=== PATIENT | male | born 1980 | race Caucasian/White ===

== ENCOUNTER 2017-06-30 11:32 | Emergency (ER) | payer MEDICAID ==
[2017-06-30 12:09] LABS: BASOPHILS % (AUTO) 0.2 %; EOSINOPHILS # (AUTO) 0.1 10^3/uL (0.0-0.7); EOSINOPHILS % (AUTO) 0.6 %; HCT - HEMATOCRIT 47.9 % (42.0-52.0); HGB - HEMOGLOBIN 16.3 g/dL (14.0-18.0); LYMPHOCYTES # (AUTO) 1.7 10^3/uL (1.5-3.5); LYMPHOCYTES % (AUTO) 18.5 %; MEAN CORPUSCULAR HEMOGLOBIN 30.9 pg (27.0-31.0); MEAN CORPUSCULAR VOLUME 90.9 fL (80.0-94.0); MONOCYTES # (AUTO) 0.5 10^3/uL (0.0-1.0); MONOCYTES % (AUTO) 5.9 %; NEUTROPHILS # (AUTO) 6.9 10^3/uL (1.5-6.6); NEUTROPHILS % (AUTO) 74.8 %; NUCLEATED RED BLOOD CELLS AUTO 0.1 /100WBC; RED BLOOD COUNT 5.27 10^6/uL (4.70-6.10); RED CELL DISTRIBUTION WIDTH 13.1 % (12.0-15.0); UNCORRECTED WHITE BLOOD COUNT 9.2 x10^3/uL; WHITE BLOOD COUNT 9.2 x10^3/uL (4.8-10.8)
[2017-06-30 12:24] LABS: ALBUMIN/GLOBULIN RATIO 1.4 (1.0-2.2); BILIRUBIN,TOTAL 0.8 mg/dL (0.2-1.0); CALCIUM 9.2 mg/dL (8.5-10.3); CREATININE 0.9 mg/dL (0.6-1.2); POTASSIUM 4.1 mmol/L (3.5-5.0); TOTAL PROTEIN 7.8 g/dL (6.7-8.2)
[2017-06-30] MEDS ORDERED: IBUPROFEN 800 MG TABLET PO STA (12:33)
--- NOTE | 2017-06-30 12:35 | ED Physician Documentation ---
PD HPI CHEST PAIN - Stated complaint Stated Complaint: RT SIDE PX - Chief complaint Chief Complaint: Abd Pain - History obtained from History obtained from: Patient - History of Present Illness Timing - onset: Yesterday Timing - onset during: Rest Timing - details: Constant Quality: Sharp Location: Right chest Worsened by: Inspiration, Palpation Associated symptoms: Shortness of air. No: Nausea, Vomiting, Cough Similar symptoms before: Has not had sx before - Additional information Additional information: The patient is a 36-year-old male who presents with right lower chest pain that started yesterday morning, and has gotten progressively worse. The pain is worse with inspiration or with palpation, and gets better when sitting upright. He reports associated shortness of breath. He denies cough or fever. He denies abdominal pain, nausea, or vomiting. He denies history of similar symptoms in the past. He quit smoking cigarettes about 5 years ago. He has had no recent travel, and no recent injury. Review of Systems Constitutional: denies: Fever Nose: denies: Congestion Throat: denies: Sore throat Cardiac: reports: Chest pain / pressure. denies: Palpitations Respiratory: reports: Dyspnea. denies: Cough GI: denies: Abdominal Pain, Nausea, Vomiting : denies: Dysuria Skin: denies: Rash Musculoskeletal: denies: Neck pain, Back pain, Extremity pain, Extremity swelling Neurologic: denies: Focal weakness, Numbness, Headache PD PAST MEDICAL HISTORY - Past Medical History Cardiovascular: None Respiratory: None Neuro: None Endocrine/Autoimmune: None - Present Medications Home Medications: Ambulatory Orders Medication Instructions Recorded Confirmed Gabapentin 300 mg PO TID 06/30/17 06/30/17 Ibuprofen 800 mg PO TID PRN #30 tablet 06/30/17 Ibuprofen [Motrin] 1 tab PO PRN PRN 06/30/17 06/30/17 traMADol [Ultram] 50 mg PO PRN PRN 06/30/17 06/30/17 - Allergies Allergies/Adverse Reactions: Allergies Allergy/AdvReac Type Severity Reaction Status Date / Time hydrocodone AdvReac Nausea Verified 06/30/17 11:48 - Social History Does the pt smoke?: No Smoking Status: Former smoker (Quit five years ago.) PD ED PE NORMAL - Vitals Vital signs reviewed: Yes (normal) - General General: Alert and oriented X 3, Well developed/nourished - HEENT HEENT: Atraumatic, Pharynx benign - Neck Neck: No adenopathy, No JVD - Cardiac Cardiac: RRR, No murmur - Respiratory Respiratory: No respiratory distress, Clear bilaterally, Other (Tenderness to palpation of right lower chest wall in the anterior axillary to midclavicular line.) - Abdomen Abdomen: Soft, Non tender, No organomegaly - Back Back: No CVA TTP - Derm Derm: No rash - Extremities Extremities: No edema, No calf tenderness / cord - Neuro Neuro: Alert and oriented X 3, No motor deficit, No sensory deficit Results - Vitals Vitals: Oxygen O2 Source Room air - Labs Labs: Laboratory Tests 06/30/17 06/30/17 06/30/17 12:02 12:02 12:02 WBC 9.2 RBC 5.27 Hgb 16.3 Hct 47.9 MCV 90.9 MCH 30.9 MCHC 34.0 RDW 13.1 Plt Count 207 MPV 7.0 L Neut # 6.9 H Lymph # 1.7 [place] # 0.5 Eos # 0.1 Baso # 0.0 Absolute Nucleated RBC 0.01 Nucleated RBC % 0.1 D-Dimer 222.8 Sodium 138 Potassium 4.1 Chloride 106 Carbon Dioxide 24 Anion Gap 8.0 BUN 17 Creatinine 0.9 Estimated GFR (MDRD) 94 Glucose 117 H Calcium 9.2 Total Bilirubin 0.8 AST 20 ALT 23 Alkaline Phosphatase 53 Total Protein 7.8 Albumin 4.6 Globulin 3.2 Albumin/Globulin Ratio 1.4 Lipase 33 - Rads (name of study) 2-view CXR Radiology: Prelim report reviewed, EMP read contemporaneously, See rad report ( Bibasilar airspace disease and pleural fluid, most likely infectious or hypo- ventilatory with differential including other less likely etiologies such as pulmonary emboli.) CT chest w/ Radiology: Prelim report reviewed, EMP read contemporaneously, See rad report ( Negative CT pulmonary angiogram for pulmonary emboli. Bibasilar airspace disease with tiny effusions. Otherwise negative chest CT.) PD MEDICAL DECISION MAKING - ED course Complexity details: reviewed results, re-evaluated patient, considered differential, d/w patient ED course: The patient's presentation is significant for small bilateral pleural effusions , most likely due to viral pneumonitis. His presentation does not suggest bacterial pneumonia, and there is no evidence of pulmonary embolus or pulmonary mass on CT scan of the chest. Is CBC reveals normal white count, and d-dimer is negative. Treatment in the emergency department included administration of ibuprofen 800 mg orally. I discussed with him the results of his workup, symptomatic treatment and outpatient follow-up, as well as potentially worrisome signs or symptoms that should prompt reevaluation in the emergency department. Departure - Departure Disposition: 01 Home, Self Care Clinical Impression: Pleural effusion associated with pulmonary infection, Viral pneumonitis Condition: Stable Instructions: ED Effusion Pleural, ED Pneumonia Adult Follow-Up: [facility] [Provider Group] Dr. Junito [Other] Prescriptions: Ibuprofen 800 mg PO TID PRN #30 tablet PRN Reason: Pain Comments: You can use ibuprofen, up to 800 mg 3 times daily for its anti-inflammatory effect. That your energy level be your guide to activity. Followup with your primary physician within one to 2 weeks. Call to schedule an appointment. Return to the emergency department if you develop increasing difficulty breathing, or otherwise worsening symptoms. Discharge Date/Time: 06/30/17 16:30
[2017-06-30] MEDS ORDERED: IBUPROFEN 800 MG TABLET PO ONE (12:45)
--- NOTE | 2017-06-30 13:09 | XRAY Preliminary Report ---
Exam: XR CHEST 2 VIEW PA/LAT IMPRESSION: Bibasilar airspace disease and pleural fluid, most likely infectious or hypoventilatory w ith differential including other less likely etiologies such as pulmonary emboli. [facility] SITE ID: [id number]
--- NOTE | 2017-06-30 13:11 | XRAY Report ---
EXAM: CHEST RADIOGRAPHY EXAM DATE: 06/30/2017 12:49 PM. CLINICAL HISTORY: Right lower chest pain. COMPARISON: None. TECHNIQUE: 2 views. FINDINGS: Lungs/Pleura: By basilar airspace disease and small effusions. Clear upper lungs.No pneumothorax. Nor mal volumes. Mediastinum: Heart and mediastinal contours are unremarkable. Other: Negative bony structures. IMPRESSION: Bibasilar airspace disease and pleural fluid, most likely infectious or hypoventilatory w ith differential including other less likely etiologies such as pulmonary emboli. [facility] Referring Provider Line: [phone] SITE ID: [id number]
[2017-06-30] MEDS ORDERED: IOPAMIDOL-300 100 ML VIAL ONE (15:12)
[2017-06-30] MEDS ORDERED: IOPAMIDOL-300 100 ML VIAL IVP ONE (15:30)
--- NOTE | 2017-06-30 15:53 | CT Preliminary Report ---
Exam: CT CHEST W/ IMPRESSION: Negative pulmonary CT angiogram for pulmonary emboli. Bibasilar airspace disease and tiny effusions. Otherwise negative chest CT [facility] SITE ID: [id number]
--- NOTE | 2017-06-30 15:55 | CT Report ---
EXAM: CT ANGIOGRAM CHEST EXAM DATE: 06/30/2017 03:28 PM. CLINICAL HISTORY: Right sided chest pain; CXR shows bilateral effusion. COMPARISON: Chest x-ray earlier today.. TECHNIQUE: Routine helical imaging was performed through the chest in the pulmonary arterial phase. I V Contrast: 100 cc [id number]. Reconstructions: Coronal 3-D MIP reconstructions.Sagittal and coronal. In accordance with CT protocol optimization, one or more of the following dose reduction techniques w ere utilized for this exam: automated exposure control, adjustment of mA and/or KV based on patient s ize, or use of iterative reconstructive technique. FINDINGS: Pulmonary Arteries: Diagnostic quality: Adequate through the segmental arteries. No evidence for acute or chronic pulmona ry emboli. RV/LV is within normal limits. There is no interventricular septal bowing. There is no reflux of cont rast material in the IVC. Lungs/Pleura: Bibasilar airspace disease and tiny pleural effusions. Otherwise no consolidation, nodu les, or edema. No pneumothorax. Mediastinum: Normal. No cardiac enlargement or adenopathy. Thoracic Aorta: Unremarkable. Upper Abdomen: Unremarkable. Other: None. IMPRESSION: Negative pulmonary CT angiogram for pulmonary emboli. Bibasilar airspace disease and tiny effusions. Otherwise negative chest CT [facility] Referring Provider Line: [phone] SITE ID: [id number]
[2017-06-30 16:29] VITALS: BP 130/69
== END 2017-06-30 16:30 | disposition home or self-care (01) ==
LOC: ED 11:32
DX: J12.9 Viral pneumonia, unspecified (principal); J91.8 Pleural effusion in other conditions classified elsewhere; Z87.891 Personal history of nicotine dependence
CPT/HCPCS: 36415; 71020; 71260; 80053; 83690; 85025; 85379; 99283; 99284; A9270; Q9967